=== PATIENT | female | born 1965 | race Two or more races ===

== ENCOUNTER 2018-06-03 22:12 | Inpatient (IN) | payer MEDICARE, OTHER ==
[~2018-06-03] VITALS: Ht 152.4 cm; Wt 61.7 kg
[2018-06-04 08:00] VITALS: BP 127/77
[2018-06-04] MEDS ORDERED: ARIP400S IM (08:15)
[2018-06-04] MEDS ORDERED: ARIP5TAB20 PO (08:15)
[2018-06-04] MEDS ORDERED: TRAZ-214 PO (08:15)
--- NOTE | 2018-06-04 10:00 | NUR ---
GPS/RN-NOTES ADMITTED 52 YEARS OLD FEMALE PATIENT FROM ER. PATIENT WAS PUT ON 5150 HOLD FOR DTS AND GRAVELY DISABLE ADULT. DR. CONRAD ( PSYCHIATRIST) MADE AWARE OF THE ADMISSION WITH ORDERS. MAYITO BOLDEN(SUPERVISOR WARPING DEPARTMENT) ALSO MADE AWARE OF THE ADMISSION. PATIENT WAS COOPERATIVE DURING THE INTERVIEW AND ADMISSION PROCESS. PATIENT STATED" I'M DEPRESSED I DO HAVE THOUGHTS YESTERDAY OF HURTING MY SELF BUT I DON'T KNOW HOW". [employer] BI DEVELOPER ADVISE THE PATIENT TO VERBALIZE FEELING TO THE STAFF AND THAT SHE WILL PARTICIPATES IN THE ACTIVITY GROUP IN THE DAY ROOM. PATIENT VERBALIZE UNDERSTANDING AND ABLE TO CONTRACT SAFETY. PATIENT WAS ORIENTED IN THE UNIT AND UNIT POLICIES. PATIENT RIGHTS WAS DISCUSS WITH THE PATIENT AND BOOKLET WAS GIVEN TO HER. MOTHER CINDA PILLAI ([phone]) MADE AWARE OF PATIENT ADMISSION. CONTRABAND DONE (CELLPHONE X1 AND X1 YELLOW NECKLACE X1 WRIST WATCH WAS KEEP IN THE SAFE).
[2018-06-04 10:03] VITALS: BP 127/77
[2018-06-04] MEDS ORDERED: MAGNESIUM HYDROXIDE 30 ML UDC PO PRN (10:30)
[2018-06-04] MEDS ORDERED: ACETAMINOPHEN 325 MG TABLET PO PRN (10:30)
[2018-06-04] MEDS ORDERED: MAG HYDROX/AL HYDROX/SIMETH 30 ML UDC PO PRN (10:30)
[2018-06-04] MEDS ORDERED: LORAZEPAM 0.5 MG TABLET PO PRN (10:30)
--- NOTE | 2018-06-04 11:52 | NUR ---
INITIAL DISCHARGE PLAN: Per patient she [facility] be [facility] [address] [facility] [address] . Pst mother Soha [phone] confirmed with SW that pt is able to return home. SW will help form a safe and proper discharge in collaboration with and [facility] Address: [address] [facility], [place] [address] .
[2018-06-04] MEDS: DIVALPROEX SODIUM 125 MG TABLET.DR PO SCH ×2 (13:35→16:30)
[2018-06-04] MEDS: BENZTROPINE MESYLATE (1 MG) 1 MG TABLET PO SCH ×2 (13:35→16:30)
[2018-06-04] MEDS: risperiDONE 1 MG TABLET PO SCH ×2 (13:35→16:30)
[2018-06-04 16:03] VITALS: BP 110/74
[2018-06-04 20:00] VITALS: BP 126/64
[2018-06-04] MEDS: TEMAZEPAM 7.5 MG CAPSULE PO PRN (21:29)
[2018-06-05 07:55] LABS: ALBUMIN 3.4 g/dL (3.4-5.0); BILIRUBIN,TOTAL 0.8 mg/dL (0.2-1.0); CALCIUM, SERUM 8.7 mg/dL (8.5-10.1); CREATININE 0.8 mg/dL (0.6-1.3); TOTAL PROTEIN, SERUM 6.8 g/dL (6.4-8.2)
[2018-06-05 07:59] LABS: CHOLESTEROL 254 mg/dL (<200); HDL CHOLESTEROL 45 mg/dL (40-60); LDL 142 mg/dL (0-99); TRIGLYCERIDES 398 mg/dL (30-150)
[2018-06-05 08:05] VITALS: BP 105/67
[2018-06-05] MEDS: DIVALPROEX SODIUM 125 MG TABLET.DR PO SCH ×3 (08:52→17:18)
[2018-06-05] MEDS: BENZTROPINE MESYLATE (1 MG) 1 MG TABLET PO SCH ×3 (08:52→21:06)
[2018-06-05] MEDS: risperiDONE 1 MG TABLET PO SCH ×3 (08:53→21:06)
[2018-06-05 16:00] VITALS: BP 101/66
[2018-06-05 20:00] VITALS: BP 106/64
[2018-06-05] MEDS: TEMAZEPAM 7.5 MG CAPSULE PO PRN (22:07)
[2018-06-06 08:51] VITALS: BP 99/57
[2018-06-06] MEDS: DIVALPROEX SODIUM 125 MG TABLET.DR PO SCH ×3 (09:07→18:03)
[2018-06-06] MEDS: BENZTROPINE MESYLATE (1 MG) 1 MG TABLET PO SCH ×3 (09:07→20:16)
[2018-06-06] MEDS: risperiDONE 1 MG TABLET PO SCH ×3 (09:07→20:16)
[2018-06-06 16:00] VITALS: BP 106/64
[2018-06-06 20:50] VITALS: BP 133/81
[2018-06-07 07:04] LABS: BASOPHILS % (AUTO) 0.6 % (0.0-2.0); EOSINOPHILS % (AUTO) 2.7 % (0.0-6.0); HEMATOCRIT 39 % (33-45); HEMOGLOBIN 13.4 g/dL (11.5-14.8); LYMPHOCYTES # (AUTO) 2.4 /CMM (0.8-4.8); LYMPHOCYTES % (AUTO) 42.1 % (20.0-44.0); MEAN CORPUSCULAR HEMOGLOBIN 34 PG (26.0-33.0); MEAN CORPUSCULAR HGB CONC 34 g/dl (31.0-36.0); MEAN CORPUSCULAR VOLUME 98 fL (82-100); MONOCYTES # (AUTO) 0.4 /CMM (0.1-1.30); MONOCYTES % (AUTO) 6.6 % (2.0-12.0); NEUTROPHILS # (AUTO) 2.8 /CMM (1.8-8.9); PLATELET COUNT (AUTO) 255 /CMM (150-450); RDW COEFFICIENT OF VARIATION 12.2 (11.5-15.0); RED BLOOD CELL COUNT(AUTO) 3.99 MIL/uL (4.0-5.2); WHITE BLOOD COUNT (AUTO) 5.8 K/uL (4.3-11.0)
[2018-06-07 07:27] LABS: ALBUMIN 3.5 g/dL (3.4-5.0); BILIRUBIN,TOTAL 0.8 mg/dL (0.2-1.0); CALCIUM, SERUM 9.1 mg/dL (8.5-10.1); CREATININE 0.8 mg/dL (0.6-1.3); POTASSIUM 4.2 mmol/L (3.5-5.1); TOTAL PROTEIN, SERUM 6.9 g/dL (6.4-8.2)
[2018-06-07 08:00] VITALS: BP 110/59
[2018-06-07] MEDS: BENZTROPINE MESYLATE (1 MG) 1 MG TABLET PO SCH ×3 (09:05→20:16)
[2018-06-07] MEDS: risperiDONE 1 MG TABLET PO SCH ×3 (09:05→20:17)
[2018-06-07] MEDS: DIVALPROEX SODIUM 125 MG TABLET.DR PO SCH ×3 (09:05→16:37)
[2018-06-07 16:00] VITALS: BP 106/64
[2018-06-07 19:51] VITALS: BP 105/65
[2018-06-07] MEDS: DIVALPROEX SODIUM 250 MG TABLET.DR PO SCH (21:18)
[2018-06-07] MEDS: TEMAZEPAM 7.5 MG CAPSULE PO PRN (21:42)
[2018-06-08 08:00] VITALS: BP 101/58
[2018-06-08] MEDS: BENZTROPINE MESYLATE (1 MG) 1 MG TABLET PO SCH ×3 (08:18→20:05)
[2018-06-08] MEDS: DIVALPROEX SODIUM 125 MG TABLET.DR PO SCH ×3 (08:18→16:21)
[2018-06-08] MEDS: risperiDONE 1 MG TABLET PO SCH ×3 (08:19→20:05)
[2018-06-08 16:00] VITALS: BP 110/68
[2018-06-08 20:11] VITALS: BP 115/65
[2018-06-08] MEDS: DIVALPROEX SODIUM 250 MG TABLET.DR PO SCH (21:28)
[2018-06-08] MEDS: TEMAZEPAM 7.5 MG CAPSULE PO PRN (22:02)
[2018-06-09 08:00] VITALS: BP 98/60
[2018-06-09] MEDS: BENZTROPINE MESYLATE (1 MG) 1 MG TABLET PO SCH ×3 (08:03→19:32)
[2018-06-09] MEDS: DIVALPROEX SODIUM 125 MG TABLET.DR PO SCH ×3 (08:04→16:28)
[2018-06-09] MEDS: risperiDONE 1 MG TABLET PO SCH ×3 (08:04→19:32)
[2018-06-09 16:00] VITALS: BP 106/74
[2018-06-09 19:58] VITALS: BP 115/65
[2018-06-09] MEDS: DIVALPROEX SODIUM 250 MG TABLET.DR PO SCH (21:01)
--- NOTE | 2018-06-09 21:15 | NUR ---
GPS RN NOTE, RECEIVED PATIENT AWAKE AND IN BED, NO S/S OR COMPLAINTS OF PAIN AT THIS TIME. PATIENT IS DISPLAYING NO S/S OF APPARENT DISTRESS AT THIS TIME. PATIENT BREATHING IS UNLABORED WITH EQUAL RISE AND FALL OF THE CHEST. PATIENT IS ALERT AND ORIENTED X 3 ON ROOM AIR WITH A SPO2 99 %. PATIENT IS MED COMPLIANT, CALM, COOPERATIVE, AND MAKES ALL NEEDS KNOWN. PATIENT DENIES SUICIDE IDEATIONS AND HOMICIDAL IDEATIONS AT THIS TIME. PATIENT ASSISTED WITH TURNING AND REPOSITIONING Q2HR AND PRN FOR COMFORT AND CIRCULATION. PATIENT HAS NO NEEDS AT THIS TIME. PATIENT EDUCATED ON THE USE OF THE CALL SAWYER. PATIENT BED SIDE RAILS ARE UP X 2 FOR SAFETY. PATIENT BED IS LOCKED AND LOW. WILL CONTINUE TO MONITOR THIS PATIENT Q15 MIN WITH THE HELP OF STAFF TO MAINTAIN SAFETY.
[2018-06-09] MEDS: TEMAZEPAM 7.5 MG CAPSULE PO PRN (21:46)
[2018-06-10 08:11] VITALS: BP 96/63
--- NOTE | 2018-06-10 08:12 | NUR ---
DR. CONRAD GAVE AN ORDER TO D/C HOLD AND D/C HOME AND TO FOLLOW UP WITH PSYCH AND MEDICAL DOCTORS.
[2018-06-10] MEDS: risperiDONE 1 MG TABLET PO SCH (08:38)
[2018-06-10] MEDS: BENZTROPINE MESYLATE (1 MG) 1 MG TABLET PO SCH (08:38)
[2018-06-10] MEDS: DIVALPROEX SODIUM 125 MG TABLET.DR PO SCH (08:38)
--- NOTE | 2018-06-10 11:20 | NUR ---
GPS/RN PATIENT CLEARED FOR DISCHARGE HOME BY DR CONRAD AND MAYITO COHN. BOTH DR'S RECONCILED MEDS, PSYCHIATRIC PRESCRIPTIONS INCLUDED IN PACKET. NO MEDICAL MEDICAL PRESCRIPTIONS NEEDED. AFTER CARE PLAN, EXIT CARE AND MEDICATIONS EXPLAINED TO PATIENT, VERBALIZED UNDERSTANDING. PER PATIENT, NO PREFERRED PHARMACY. BELONGINGS, VALUABLES AND HOME MEDS RETURNED TO PATIENT, PATIENT DENIES SI/HI/AVH AT TIME OF DISCHARGE, PSYCHIATRIC TREATMENT PLANS MET, SKIN INTACT. LEFT UNIT CALM, COOPERATIVE, STABLE CONDITION WITH NO DISTRESS NOTED, [facility] AT SIDE.
--- NOTE | 2018-06-10 11:47 | NUR ---
DISCHARGE NOTE: Pt was discharged at 1130 via [facility] home to [address] [place] [address] [address] [facility] [address]. Pts raimundo Hoyos has been notified [phone] and agreed with discharge plan. Pt was happy with congruent affect and denied suicidal/homicidal ideations and denied visual/auditory hallucinations. SW spoke with pts director case management Louann [phone] from [facility] in [place] and scheduled a follow up appointment with Psychiatrist: Dr. [facility] [address] [place] [address] on Thursday June 14, 2018 at 4:00pm. Pt willl also schedule a follow-up appointment with Janitorial Maintenance Worker: Dr. Dinora Patrick [address] [place] [address] [phone]. The multidisciplinary exitcare form was done, printed, signed, and given to the patient.
--- NOTE | 2018-06-14 15:00 | NUR ---
LINDSAY faxed DC summary to case packer Louann [phone] from [facility] [address] [place] [address] fax: [phone].
== END 2018-06-10 11:25 | disposition home or self-care (01) | DRG 885 ==
LOC: GPS 06-04 08:03
PROVIDERS: ADMIT Psychiatry & Neurology Psychosomatic Medicine; ATTEND Psychiatry & Neurology Psychosomatic Medicine
DX: F25.0 Schizoaffective disorder, bipolar type (principal); F70 Mild intellectual disabilities; R45.851 Suicidal ideations; F41.9 Anxiety disorder, unspecified; Z73.6 Limitation of activities due to disability; Z91.5 Personal history of self-harm; G31.84 Mild cognitive impairment of uncertain or unknown etiology; F29 Unspecified psychosis not due to a substance or known physiological condition
CPT/HCPCS: 36415; 70450-TC; 80053-TC; 80061-TC; 80164-TC; 85025-TC; 87081-TC